=== PATIENT | male | born 1955 | race Caucasian/White ===

== ENCOUNTER 2018-04-02 14:28 | Emergency (ER) | payer MEDICARE, MEDICAID ==
[~2018-04-02] VITALS: Ht 177.8 cm; Wt 76.3 kg
[~2018-04-02 14:28] MED LIST: ASPI-496 PO; ATEN50TA41 PO; HYDR25TA6 PO; RANI150T4 PO
[2018-04-02 14:36] VITALS: BP 139/85
[2018-04-02] MEDS ORDERED: DIPH,PERTUSS(ACELL),TET VAC/PF 0.5 ML IM-VACC ONE ×2 (15:00→15:41)
[2018-04-02] MEDS ORDERED: SODIUM CHLORIDE FLUSH 10ML SYR IVF ONE (15:00)
[2018-04-02 15:11] LABS: BASOPHILS # (AUTO) 0.04 x10^3/uL (0-0.1); BASOPHILS % (AUTO) 0 % (0-1); EOSINOPHILS # (AUTO) 0.04 x10^3/uL (0-0.4); EOSINOPHILS % (AUTO) 1 % (1-7); LYMPHOCYTES # (AUTO) 1.68 x10^3/uL (1-3.4); LYMPHOCYTES % (AUTO) 21 % (22-44); MD NO; MEAN CORPUSCULAR HEMOGLOBIN 34.4 pg (27.5-34.5); MEAN CORPUSCULAR HGB CONC 35.1 g/dL (33.2-36.2); MEAN CORPUSCULAR VOLUME 97.9 fL (81-97); MEAN PLATELET VOLUME 7.1 fL (7.4-10.4); MONOCYTES # (AUTO) 1.26 x10^3/uL (0.2-0.8); MONOCYTES % (AUTO) 16 % (2-9); NEUTROPHILS # (AUTO) 5.14 x10^3/uL (1.8-6.8); NEUTROPHILS % (AUTO) 63 % (42-75); PLATELET COUNT 183 x10^3/uL (130-400); RED BLOOD COUNT 4.58 x10^6/uL (4.38-5.82); RED CELL DISTRIBUTION WIDTH 13.3 % (9.4-14.8)
[2018-04-02 15:17] LABS: ALBUMIN 3.8 g/dL (3.4-5.0); ANION GAP 12 mmol/L (5-15); CALCIUM 9.3 mg/dL (8.5-10.1); CHLORIDE 92 mmol/L (98-107); CREATININE 0.74 mg/dL (0.7-1.3)
[2018-04-02] MEDS ORDERED: LIDOCAINE-MPF 1%, 5ML ONE (15:49)
[2018-04-02] MEDS ORDERED: DIAZEPAM 5 MG TABLET PO ONE (16:30)
[2018-04-02] MEDS ORDERED: AMPICILLIN/SULBACTAM 3 GM in SODIUM CHLORIDE 0.9% 100 ML IV ONE (16:30)
[2018-04-02] MEDS ORDERED: DIAZEPAM 5 MG TABLET ONE (16:36)
== END 2018-04-02 16:54 | disposition home or self-care (01) ==
LOC: ED 16:40
DX: L03.113 Cellulitis of right upper limb (principal); F17.200 Nicotine dependence, unspecified, uncomplicated
CPT/HCPCS: 10060; 36415; 73130; 80048; 82040; 85025; 90471; 90715; 96365; 99285; J0295

== ENCOUNTER 2018-04-04 16:49 | Emergency (ER) | payer MEDICAID, MEDICARE ==
[~2018-04-04] VITALS: Ht 177.8 cm; Wt 76.3 kg
[2018-04-04 17:07] VITALS: BP 132/90
[2018-04-04] MEDS ORDERED: CEPHALEXIN 500 MG CAPSULE PO ONE (18:00)
[2018-04-04] MEDS ORDERED: SULFAMETH./TRIMETHOPRIM DS 800MG/160MG TABLET PO ONE (18:00)
[2018-04-04] MEDS ORDERED: CEPHALEXIN 500 MG CAPSULE ONE (18:01)
[2018-04-04] MEDS ORDERED: SULFAMETH./TRIMETHOPRIM DS 800MG/160MG TABLET ONE (18:01)
[2018-04-04] MEDS ORDERED: LIDOCAINE-MPF 1%, 5ML ONE (18:52)
== END 2018-04-04 19:29 | disposition home or self-care (01) ==
LOC: ED 17:33
DX: L02.511 Cutaneous abscess of right hand (principal); I10 Essential (primary) hypertension; F17.200 Nicotine dependence, unspecified, uncomplicated
CPT/HCPCS: 10060; 99284